=== PATIENT | female | born 1930 | race Caucasian/White ===

== ENCOUNTER 2017-08-12 19:33 | Emergency (ER) | payer OTHER, BC ==
[~2017-08-12] VITALS: Ht 157.5 cm; Wt 113.4 kg
[~2017-08-12 19:33] MED LIST: ALDACTONE25 MG PO; ARIMIDEX; ASPIRIN EC81 M1 PO; ASPIRIN325 PO; ATENOLOL 100MG100 M2 PO; AZO CRANBERRY250 MG PO; BYSTOLIC 5 MG5 M1 PO; CEFUROXIME250 MG PO; CHILDREN'S ASPI81 M1 PO; CITRACAL + D C1 EACH PO; COLACE100 MG; COZAAR100 MG PO; CYCLOBENZAPRINE10 MG PO; DOXYCYCLINE 10100 MG PO; ENOXAPARIN30 MG/0.1 SUBQ; FLOMAX0.4 MG PO; FUROSEMIDE 20 M20 MG PO; HYDRALAZINE 2525 MG; HYDROCODON-ACE1 EAC7 PO; HYDROCODONE-AP1 EAC6 PO; IRON325 MG PO; KEFLEX500 MG PO; KLOR-CON 1010 MEQ PO; LIDODERM; MEDROLDOSEPACK PO; MIRAPEX0.25 MG PO; MOBIC15 MG PO; NABUMETONE 500500 M1 PO; OCUVITE LUTEIN1 EAC1 PO; OMEGA-31000 M1 PO; PAXIL20 MG PO; PERCOCET 7.5-31 EACH PO; POTASSIUM20 PO; PRAVASTATIN SOD20 MG PO; PRESERVISION A1 EAC1 PO; PRESERVISION L1 EACH PO; THERA-M CAPLET1 EACH PO; TRAMADOL 50 MG50 MG; TUMS PO; TYLENOL325 MG; UNICOMPLEX M TA1 TA1; VITAMIN B-12100 MC1 PO; VITAMIN D1000 UNI1 PO; VITCB500GO PO; XARELTO20 MG PO
== END 2017-08-12 21:54 ==
LOC: ER 19:33
DX: Z46.6 Encounter for fitting and adjustment of urinary device (principal); I10 Essential (primary) hypertension; Z90.13 Acquired absence of bilateral breasts and nipples; Z95.0 Presence of cardiac pacemaker; Z96.641 Presence of right artificial hip joint; Z88.2 Allergy status to sulfonamides; Z88.1 Allergy status to other antibiotic agents; Z88.8 Allergy status to other drugs, medicaments and biological substances

== ENCOUNTER 2017-09-01 19:21 | Inpatient (IN) | payer OTHER, BC ==
[~2017-09-01] VITALS: Ht 157.5 cm; Wt 79.8 kg
--- NOTE | ~2017-09-01 | P ---
[facility] [place] [address] PROCEDURE REPORT Name: DANA LARA Room #: 463-P ADM IN M.R.#: [id number] Admission: 09/01/17 Attend Phys: Gabino Shea MD Discharge: Date of : [birth year] Report #: [id number] THIS REPORT FOR: //name// CC: Gabino oRca DATE OF SERVICE: 09/04/2017 BRIEF HISTORY: The patient is an 86-year-old woman who presented with nausea, vomiting. CT suggested a duodenal obstruction. Per patient and family, she did not have symptoms until two days prior to admission. PREOPERATIVE DIAGNOSIS: Nausea, vomiting, duodenal obstruction. POSTOPERATIVE DIAGNOSES: 1. Severe ulcerative esophagitis potentially secondary to vomiting. 2. Diffuse gastritis with erosions. 3. Normal duodenum. 4. A 1-1.5 cm submucosal lesion, proximal jejunum, nonobstructing. 5. No evidence of obstruction in duodenum or proximal jejunum. MEDICATIONS: Intubation and deep sedation per anesthesia. SPECIMEN: 1. Biopsies of submucosal lesion in proximal jejunum. 2. Biopsy of gastritis. ESTIMATED BLOOD LOSS: 3 mL. PROCEDURE: Small bowel endoscopy with biopsy. FINDINGS: Prior to propofol sedation, procedure of upper endoscopy was discussed with the patient as well as patient's family as well as potential risks and complications. They indicate they understand and they desire that we proceed. DESCRIPTION OF PROCEDURE: With the patient in left lateral decubitus position, the Olympus video endoscope was inserted in the cervical esophagus under direct vision without difficulty. Examination of this organ and the stomach revealed extensive ulceration throughout the mid and distal esophagus consistent with esophagitis. This may be secondary to her vomiting. As we advanced the scope in the stomach, it was examined on end views as well as retroflexed views. There was a pattern of a diffuse gastritis. No ulcers or bleeding lesions were seen. Biopsies were obtained. Some of this may be secondary to her NG tube [facility] [address] [place] [address] PROCEDURE REPORT Name: JAZMNI LARALYN Room #: 463- ADM IN M.R.#: [id number] Admission: 09/01/17 Attend Phys: Gabino Shea MD Discharge: Date of : [birth year] Report #: [id number] suctioning. The pylorus was normal. Also, I might point out that there was only a minimal amount of fluid in the stomach. The scope was advanced across the pylorus and the entire duodenal sweep was inspected with multiple insertions and withdrawal of the scope and no mucosal abnormalities were seen. There was no evidence of obstruction. The duodenum was not dilated. There were no retained liquids within the stomach. The duodenal papilla was seen, was unremarkable and clear yellow bile was streaming from it. We then exchanged the scope for a pediatric small bowel scope was advanced the scope into the duodenum through the entire duodenal sweep across the ligament of Treitz and then deep into the upper jejunum. There was no evidence of obstruction. No retained liquids were seen. No ulcers were seen. In the proximal jejunum, a lesion was seen, was thought to be a submucosal lesion with normal overlying mucosa. It was about 1-1.5 cm in greatest dimension and biopsies were obtained. However, I think it is doubtful that the biopsies will be diagnostic as this is likely a submucosal lesion, I might point out that it felt fairly soft with palpation of the biopsy forceps. At that point, the scope was withdrawn and careful circumferential views confirmed the above findings. The patient tolerated the procedure well. DISPOSITION: The patient was nauseated and vomiting. CT evidence of duodenal obstruction, there is no evidence of an obstruction in the duodenum or the proximal jejunum. I wonder if she had a viral illness with retained fluids in her stomach and nausea and vomiting, which is now improved. At this point in time, we will leave out the NG tube. Due to the esophagitis, she should be on a proton pump inhibitor at least on short-term basis and potentially longer if needed. We will follow up on biopsies obtained today. <ELECTRONICALLY SIGNED> By: Isidro Ryan MD 09/05/17 1710 1304 1337 Isidro Ryan MD /nt
--- NOTE | ~2017-09-01 | HC ---
[facility] [place] [address] CONSULTATION Name: DANA LARA Room #: 463-P ADM IN M.R.#: [id number] Admission: 09/01/17 Attend Phys: Gabino Shea MD Discharge: Date of : [birth year] Report #: [id number] THIS REPORT FOR: //name// CC: Gabino Roca DATE OF SERVICE: 09/02/2017 REASON FOR CONSULTATION: Abnormal CT showing stomach distention and duodenal obstruction. CONSULTING PHYSICIAN: Dr. Justin Anguiano. HISTORY OF PRESENT ILLNESS: This is an 86-year-old female, seen in consultation today with the above findings on CT. Family, including two sons and daughter, is at bedside. She has a history of hypertension, atrial fibrillation, cholecystectomy, hysterectomy and bladder surgery and was admitted from [facility] with complaints of nausea and vomiting. She also reports fatigue and tiredness. She has had decreased appetite for the past 2 days. On admission, she underwent a CT scan of the abdomen and pelvis that showed marked fluid and gases in the stomach, duodenal bulb and descending duodenum concerning for duodenal obstruction. No definite mass lesions were noted. On further questioning, she reports having an EGD in 2000. She has no history of ulcers. She denies any abdominal pain at this time. She currently has an NG tube in place with a black aspirate noted. Of note, her hemoglobin is 15.9. REVIEW OF SYSTEMS: As noted in HPI, otherwise 10 review of systems obtained and negative. PAST MEDICAL AND SURGICAL HISTORY: 1. Hip fracture. 2. Recurrent urinary tract infection. 3. Hypertension. 4. Atrial fibrillation. 5. Cholecystectomy. 6. Hysterectomy. 7. Bladder surgery. ALLERGIES AND MEDICATIONS: Reviewed and noted. SOCIAL HISTORY: Denies tobacco, alcohol or illegal drug. FAMILY HISTORY: No family history of colorectal cancer or other GI [facility] [address] [place] [address] CONSULTATION Name: DANA LARA Room #: 463-P ADM IN [facility].#: [id number] Admission: 09/01/17 Attend Phys: Gabino Shea MD Discharge: Date of : [birth year] Report #: [id number] malignancies. PHYSICAL EXAMINATION: GENERAL: Alert, oriented to time, place and person, cooperative, appears in moderate distress with NG tube in place. VITAL SIGNS: Hemodynamically stable, afebrile. HEAD: Normocephalic, atraumatic head. EYES: Pupils equal, round and reactive to light and accommodation. Extraocular movements intact. No pallor. No icterus. NECK: Supple. Midline trachea. Thyroid not palpable. CARDIOVASCULAR: Regular rate and rhythm, no murmur. RESPIRATORY: Chest clear to auscultation bilaterally. ABDOMEN: Soft, no guarding, no masses appreciated. Minimal bowel sounds. EXTREMITIES: No cyanosis, clubbing or edema. SKIN: Warm and dry. No rashes. NEUROLOGIC: Cranial nerves 2-12 grossly intact. No focal deficits. LABORATORY DATA: Hemoglobin 15.9, white count 18.7, platelets 193. Normal liver function except mildly elevated bilirubin of 1.8, normal lipase. Creatinine 0.8. CT scan results noted above in HPI. DIAGNOSTIC IMPRESSION AND PLAN: 1. Abnormal CT. Distention of stomach, duodenum and descending duodenum suspicious for duodenal obstruction. I agree with NG tube with low intermittent suction. I recommend decompression over the next 24 hours in preparation for EGD on Monday. Risks and benefits of procedure were discussed and she is agreeable to proceed. She may warrant intubation prior to the EGD to prevent aspiration. 2. Nausea, vomiting. This is likely secondary to duodenal obstruction. Differential includes peptic ulcer disease with subsequent obstruction or malignant stricture/mass causing obstruction. Further recommendations pending EGD findings. Thank you for allowing me to participate in the care of the patient. We will follow along. <ELECTRONICALLY SIGNED> By: Talon Grimes MD 09/03/17 1021 [id number] 1302 Talon Grimes MD /nt
--- NOTE | ~2017-09-01 | PATH ---
[facility] [address] [address] PATHOLOGY RPT PROCEDURE Name: DANA ROBERTS Room #: 463-P ADM IN M.R.#: [id number] Admission: 09/01/17 Date of : [birth year] Discharge: Report #: [id number] Path Case #: [id number] [facility] Accession Number: [id number] . 01 Material submitted: . PART A: SUBMUCOSAL LESION BIOPSY PROXIMAL JEJUNUM PART B: GASTRITIS BIOPSY . 01 Clinical history: . Pre-OP DX: Nausea, vomiting, abnormal CT, suggests duodenal obstruction Post-OP DX: Esophagitis, gastritis, submucosal lesion jejunum . 02 Diagnosis: A. Small bowel mucosa, submucosal lesion proximal jejunum, endoscopic biopsy: - Only mucosal tissue sampled with unremarkable small bowel epithelium as well as lamina propria. - No submucosal tissue present for evaluation. - Negative for villous blunting. . B. Gastric mucosa, gastritis rule out H. pylori, endoscopic biopsy: - Mild reactive gastropathy. - Negative for intestinal metaplasia or atrophy. - Negative for Helicobacter pylori (properly-controlled immunohistochemical stain performed). . (IUV:mml; 09/06/17) QLM/09/06/2017 . 02 Electronically signed: . Adeline Chester MD, Pathologist NPI- [id number] . 01 Gross description: . A. Received in formalin labeled "Dana Roberts, submucosal lesion BX proximal jejunum," are 5 segments of burden soft tissue measuring 1.4 x 0.6 x 0.2 cm in aggregate dimensions and ranging from 0.1 to 0.3 cm in maximum dimension. The specimen is submitted entirely in cassette A1. . B. Received in formalin labeled "Dana Roberts, gastric BX, rule out H. pylori," are 3 segments of burden soft tissue measuring 0.9 x 0.5 x 0.2 cm in aggregate dimensions and ranging from 0.3 to 0.7 cm in maximum dimension. The specimen is submitted entirely in cassette B1. (TSD; 09/04/2017) TOB/TOB . 02 Pathologist provided ICD-10: [place] [address] PATHOLOGY RPT PROCEDURE Name: DANA ROBERTS Room #: 463-P ADM IN M.R.#: [id number] Admission: 09/01/17 Date of : [birth year] Discharge: Report #: [id number] Path Case #: [id number] K31.9 . 02 CPT . 670382, [id number], [id number] Performed at: [address], [place], [place] [id number] MD Jitendra Eden MD Phone: [phone] Performed at: [address] [id number] MD Adeline Chester MD Phone: [phone]
[2017-09-01 19:22] VITALS: BP 170/83
[2017-09-01 20:08] LABS: ABSOLUTE NEUTROPHILS 17.4 thou/uL (1.4-8.2); BASOPHILS 0.2 % (0.0-2.0); HEMATOCRIT 46.6 % (37.0-47.0); HEMOGLOBIN 15.9 gm/dL (12.0-15.0); LYMPHOCYTES 2.8 % (24.0-44.0); MCH 29.9 pg (26.0-34.0); MCHC 34.2 g/dL (28.0-37.0); MCV 87.3 fL (80.0-100.0); MONOCYTES 3.7 % (1.0-8.0); PLATELET COUNT 193 thou/uL (150-400); POLYS 93.3 % (36.0-66.0); RBC 5.34 mil/uL (4.20-5.00); RDW 14.3 % (10.5-14.5); WBC 18.7 thou/uL (4.0-11.0)
[2017-09-01 20:13] LABS: CALCIUM 9.2 mg/dL (8.5-10.1); CREATININE 0.8 mg/dL (0.6-1.0); POTASSIUM 3.7 mmol/L (3.5-5.1)
[2017-09-01 20:19] LABS: ALBUMIN 3.5 g/dL (3.4-5.0); DIRECT BILIRUBIN 0.4 mg/dL (<0.1-0.3); TOTAL BILIRUBIN 1.8 mg/dL (<0.1-1.0); TOTAL PROTEIN 7.6 g/dL (6.4-8.2)
[2017-09-01] MEDS ORDERED: IPRAT-ALBUT 0.5-3 ML (20:53)
[2017-09-01] MEDS ORDERED: LOPERAMIDE 2 MG2 M1 PO (20:54)
[2017-09-01] MEDS ORDERED: LOPRESSOR50 PO (20:55)
[2017-09-01] MEDS ORDERED: NYSTATIN100000 UNI SW&SWALLOW (20:55)
[2017-09-01] MEDS ORDERED: PROAIR HFA8.5 GM INH (20:56)
[2017-09-02] VITALS (7 sets, daily range): BP systolic 121–184; BP diastolic 57–89
[2017-09-02 15:50] LABS: HEMATOCRIT 39.6 % (37.0-47.0); HEMOGLOBIN 13.2 gm/dL (12.0-15.0); MCH 29.3 pg (26.0-34.0); MCHC 33.4 g/dL (28.0-37.0); MCV 87.7 fL (80.0-100.0); RBC 4.51 mil/uL (4.20-5.00); RDW 14.5 % (10.5-14.5); WBC 15.7 thou/uL (4.0-11.0)
[2017-09-02 15:58] LABS: CALCIUM 8.5 mg/dL (8.5-10.1); CREATININE 1.1 mg/dL (0.6-1.0); POTASSIUM 3.4 mmol/L (3.5-5.1)
[2017-09-03 04:17] VITALS: BP 138/65
[2017-09-03 05:27] LABS: ABSOLUTE NEUTROPHILS 9.3 thou/uL (1.4-8.2); BASOPHILS 0.2 % (0.0-2.0); EOSINOPHILS 0.3 % (0.0-3.0); HEMATOCRIT 37.1 % (37.0-47.0); HEMOGLOBIN 12.7 gm/dL (12.0-15.0); LYMPHOCYTES 10.4 % (24.0-44.0); MCH 29.7 pg (26.0-34.0); MCHC 34.2 g/dL (28.0-37.0); MONOCYTES 6.7 % (1.0-8.0); PLATELET COUNT 148 thou/uL (150-400); POLYS 82.4 % (36.0-66.0); RBC 4.27 mil/uL (4.20-5.00); RDW 14.3 % (10.5-14.5); WBC 11.2 thou/uL (4.0-11.0)
[2017-09-03 05:41] LABS: CALCIUM 8.4 mg/dL (8.5-10.1); CREATININE 0.9 mg/dL (0.6-1.0); POTASSIUM 3.2 mmol/L (3.5-5.1)
[2017-09-03 08:47] VITALS: BP 154/83
[2017-09-03 16:03] VITALS: BP 168/72
[2017-09-03 19:35] VITALS: BP 176/75
[2017-09-04 04:00] VITALS: BP 128/58
[2017-09-04 08:14] VITALS: BP 151/69
[2017-09-04 10:41] LABS: HEMATOCRIT 37.8 % (37.0-47.0); HEMOGLOBIN 12.8 gm/dL (12.0-15.0); MCH 29.5 pg (26.0-34.0); MCHC 33.9 g/dL (28.0-37.0); MCV 87.2 fL (80.0-100.0); RBC 4.34 mil/uL (4.20-5.00); RDW 14.1 % (10.5-14.5)
[2017-09-04 11:00] LABS: CALCIUM 8.7 mg/dL (8.5-10.1); CREATININE 0.7 mg/dL (0.6-1.0); MAGNESIUM 2.3 mg/dL (1.8-2.4); POTASSIUM 3.3 mmol/L (3.5-5.1); TOTAL BILIRUBIN 1.1 mg/dL (<0.1-1.0); TOTAL PROTEIN 6.4 g/dL (6.4-8.2)
[2017-09-04 15:45] VITALS: BP 131/69
[2017-09-04 20:35] VITALS: BP 151/85
[2017-09-04] MEDS ORDERED: REMERON15 MG PO (21:19)
[2017-09-05 04:39] VITALS: BP 129/64
[2017-09-05 06:07] LABS: HEMATOCRIT 34.2 % (37.0-47.0); HEMOGLOBIN 11.8 gm/dL (12.0-15.0); MCH 30.3 pg (26.0-34.0); MCHC 34.5 g/dL (28.0-37.0); MCV 87.8 fL (80.0-100.0); RBC 3.9 mil/uL (4.20-5.00); RDW 13.9 % (10.5-14.5)
[2017-09-05 06:18] LABS: ANION GAP < 0 mmol/L (7-16); BUN 24 mg/dL (7-18); CALCIUM 8.1 mg/dL (8.5-10.1); CHLORIDE 105 mmol/L (98-107); CO2 36 mmol/L (21-32); CREATININE 0.6 mg/dL (0.6-1.0); GLUCOSE 135 mg/dL (74-106); MAGNESIUM 2.3 mg/dL (1.8-2.4); POTASSIUM 3.5 mmol/L (3.5-5.1); SODIUM 140 mmol/L (136-145)
[2017-09-05 08:41] VITALS: BP 142/70
[2017-09-05 15:52] VITALS: BP 140/68
[2017-09-05 19:54] VITALS: BP 150/68
[2017-09-06 03:44] VITALS: BP 147/78
[2017-09-06 04:27] LABS: ALBUMIN 2.7 g/dL (3.4-5.0); CALCIUM 8.2 mg/dL (8.5-10.1); CREATININE 0.6 mg/dL (0.6-1.0); PHOSPHORUS 2.7 mg/dL (2.5-4.9)
[2017-09-06 04:35] LABS: HEMATOCRIT 35.3 % (37.0-47.0); HEMOGLOBIN 12.4 gm/dL (12.0-15.0); MCH 30.5 pg (26.0-34.0); MCHC 35.2 g/dL (28.0-37.0); MCV 86.6 fL (80.0-100.0); RBC 4.08 mil/uL (4.20-5.00); RDW 14.3 % (10.5-14.5); WBC 9.3 thou/uL (4.0-11.0)
[2017-09-06 09:14] VITALS: BP 138/70
[2017-09-06 16:44] VITALS: BP 147/68
[2017-09-06 20:48] VITALS: BP 143/71
[2017-09-07 03:45] VITALS: BP 156/75
[2017-09-07 06:00] LABS: HEMATOCRIT 39.4 % (37.0-47.0); HEMOGLOBIN 13.4 gm/dL (12.0-15.0); MCH 29.5 pg (26.0-34.0); MCV 86.8 fL (80.0-100.0); RBC 4.54 mil/uL (4.20-5.00); WBC 11.4 thou/uL (4.0-11.0)
[2017-09-07 06:15] LABS: ALBUMIN 2.7 g/dL (3.4-5.0); CREATININE 0.6 mg/dL (0.6-1.0); PHOSPHORUS 2.7 mg/dL (2.5-4.9); POTASSIUM 4.2 mmol/L (3.5-5.1)
[2017-09-07 07:35] VITALS: BP 138/65
[2017-09-07 12:39] VITALS: BP 138/65
[2017-09-07 16:28] VITALS: BP 149/74
[2017-09-07 19:38] VITALS: BP 141/70
[2017-09-08 04:27] VITALS: BP 154/87
[2017-09-08 05:56] LABS: HEMATOCRIT 38.7 % (37.0-47.0); HEMOGLOBIN 13.3 gm/dL (12.0-15.0); MCH 29.6 pg (26.0-34.0); MCHC 34.4 g/dL (28.0-37.0); RBC 4.5 mil/uL (4.20-5.00); RDW 14.2 % (10.5-14.5); WBC 11.9 thou/uL (4.0-11.0)
[2017-09-08 06:06] LABS: CALCIUM 8.4 mg/dL (8.5-10.1); CREATININE 0.6 mg/dL (0.6-1.0); MAGNESIUM 2.2 mg/dL (1.8-2.4); POTASSIUM 3.3 mmol/L (3.5-5.1)
[2017-09-08 08:00] VITALS: BP 146/75
[2017-09-08] MEDS ORDERED: PANTOPRAZOLE SO40 M1 PO (11:33)
[2017-09-08] MEDS ORDERED: REGLAN 5 MG TAB5 MG PO (11:34)
[2017-09-08 13:32] VITALS: BP 138/65
== END 2017-09-08 15:12 | disposition home health service (06) | DRG 380 ==
LOC: ER 19:21 → 4W 23:32 → EROBS 23:32 → 4W 09-02 01:06
PROVIDERS: Emergency Medicine; Hospitalist; Internal Medicine; Nurse Practitioner Family; Surgery
PROC: 0D9680Z Drainage of Stomach with Drainage Device, Via Natural or Artificial Opening Endoscopic (ICD-10-PCS; principal; 2017-09-01)
PROC: 0DBA8ZX Excision of Jejunum, Via Natural or Artificial Opening Endoscopic, Diagnostic (ICD-10-PCS; 2017-09-04)
PROC: 0DB68ZX Excision of Stomach, Via Natural or Artificial Opening Endoscopic, Diagnostic (ICD-10-PCS; 2017-09-04)
DX: K31.5 Obstruction of duodenum (principal); E43 Unspecified severe protein-calorie malnutrition; K22.10 Ulcer of esophagus without bleeding; N39.0 Urinary tract infection, site not specified; Z96.642 Presence of left artificial hip joint; Z96.653 Presence of artificial knee joint, bilateral; Z96.1 Presence of intraocular lens; I10 Essential (primary) hypertension; I48.91 Unspecified atrial fibrillation; K29.70 Gastritis, unspecified, without bleeding; Z66 Do not resuscitate; B96.20 Unspecified Escherichia coli [E. coli] as the cause of diseases classified elsewhere; Z68.32 Body mass index [BMI] 32.0-32.9, adult; Z90.710 Acquired absence of both cervix and uterus; Z98.49 Cataract extraction status, unspecified eye; Z95.0 Presence of cardiac pacemaker; Z90.13 Acquired absence of bilateral breasts and nipples; Z88.1 Allergy status to other antibiotic agents; Z88.2 Allergy status to sulfonamides; Z88.8 Allergy status to other drugs, medicaments and biological substances; Z87.891 Personal history of nicotine dependence; Z87.81 Personal history of (healed) traumatic fracture; Z90.49 Acquired absence of other specified parts of digestive tract
CPT/HCPCS: 10045; 62110; 62900; 70005